=== PATIENT | female | born 1980 | race American Indian/Alaskan Native ===

== ENCOUNTER 2016-12-30 20:18 | Emergency (ER) | payer SELFPAY ==
[2016-12-30 21:57] LABS: Anion Gap 19 mmol/L; BUN/Creatinine Ratio 13.75; Blood Urea Nitrogen 11 mg/dL (7-17); Carbon Dioxide 25 mmol/L (22-30); Chloride 99.1 mmol/L (98-107); Glucose 92 mg/dL (65-100); Potassium 3.7 mmol/L (3.6-5.0); Sodium 139 mmol/L (137-145)
[2016-12-30 22:03] LABS: Hematocrit 39.1 % (30.3-42.9); Hemoglobin 12.7 gm/dl (10.1-14.3); Mean Corpuscular HGB Conc 33 % (30-34); Mean Corpuscular Hemoglobin 29 pg (28-32); Mean Corpuscular Volume 90 fl (79-97); Platelet Count 255 K/mm3 (140-440); Red Blood Count 4.33 M/mm3 (3.65-5.03); Red Cell Distribution Width 15.3 % (13.2-15.2); White Blood Count 7.2 K/mm3 (4.5-11.0)
[2016-12-30 23:01] LABS: Mucus,Urine 3+ /HPF
[2016-12-30 23:06] LABS: Bilirubin,Urine NEG (Negative); Blood,Urine MOD (Negative); Ketones,Urine TR mg/dL (Negative); Leukocyte Esterase,Urine LG (Negative); Nitrite,Urine NEG (Negative); Urobilinogen,Urine < 2.0 mg/dL (<2.0)
--- NOTE | 2016-12-31 06:18 | Emergency Department Report ---
ED General Adult HPI - General Chief complaint: Urogenital-Female Stated complaint: STOMACH/BACK PAIN,DISCHARGE Time Seen by Provider: 12/31/16 06:15 Source: patient Mode of arrival: Ambulatory Limitations: No Limitations - History of Present Illness Initial comments: Patient describes some vague lower abdominal pain. She states that she has not had any difficulty urinating "yet". She states that she has seen the MUSIC RESEARCHER doctor associated with [facility]. She states that a hysterectomy is being contemplated for chronic pain. She reports no fever chills vomiting or change in bowel movements. At this time she is not complaining of anything and appears quite comfortable. -: month(s) Location: abdomen Radiation: non-radiation Quality: aching Consistency: intermittent, now resolved Improves with: none Worsens with: none Associated Symptoms: denies other symptoms Treatments Prior to Arrival: none - Related Data Previous Rx's Medication Instructions Recorded Last Taken Type HYDROcodone/APAP 5-325 [[place] 1 each PO Q6HR PRN #10 tablet 12/31/16 Unknown Rx 5/325] Nitrofurantoin Monroe/M-Cryst 100 mg PO Q12HR #14 capsule 12/31/16 Unknown Rx [Macrobid CAP] Allergies Allergy/AdvReac Type Severity Reaction Status Date / Time No Known Allergies Allergy Unverified 12/30/16 20:48 ED Review of Systems ROS: Stated complaint: STOMACH/BACK PAIN,DISCHARGE Other details as noted in HPI Constitutional: denies: chills, fever Eyes: denies: eye pain, eye discharge, vision change ENT: denies: ear pain, throat pain Respiratory: denies: cough, shortness of breath, wheezing Cardiovascular: denies: chest pain, palpitations Endocrine: no symptoms reported Gastrointestinal: as per HPI, abdominal pain. denies: nausea, vomiting, diarrhea, constipation, hematemesis, melena, hematochezia Genitourinary: denies: urgency, dysuria, discharge Musculoskeletal: denies: back pain, joint swelling, arthralgia Skin: denies: rash, lesions Neurological: denies: headache, weakness, paresthesias Psychiatric: denies: anxiety, depression Hematological/Lymphatic: denies: easy bleeding, easy bruising ED Past Medical Hx - Past Medical History Additional medical history: fibroids,ovarian cyst - Surgical History Past Surgical History?: No - Social History Smoking Status: Never Smoker Substance Use Type: None - Medications Home Medications: Home Medications Medication Instructions Recorded Confirmed Last Taken Type HYDROcodone/APAP 5-325 [[place] 1 each PO Q6HR PRN #10 tablet 12/31/16 Unknown Rx 5/325] Nitrofurantoin Monroe/M-Cryst 100 mg PO Q12HR #14 capsule 12/31/16 Unknown Rx [Macrobid CAP] ED Physical Exam - General Limitations: No Limitations General appearance: alert, in no apparent distress - Head Head exam: Present: atraumatic, normocephalic - Eye Eye exam: Present: normal appearance. Absent: scleral icterus - ENT ENT exam: Present: mucous membranes moist - Neck Neck exam: Present: normal inspection - Respiratory Respiratory exam: Present: normal lung sounds bilaterally. Absent: respiratory distress - Cardiovascular Cardiovascular Exam: Present: regular rate, normal rhythm. Absent: systolic murmur, diastolic murmur, rubs, gallop - GI/Abdominal GI/Abdominal exam: Present: soft, normal bowel sounds. Absent: distended, tenderness, guarding, rebound, rigid, organomegaly, mass, bruit, pulsatile mass , hernia - Extremities Exam Extremities exam: Present: normal inspection - Back Exam Back exam: Present: normal inspection. Absent: CVA tenderness (R), CVA tenderness (L) - Neurological Exam Neurological exam: Present: alert, oriented X3, CN II-XII intact. Absent: motor sensory deficit - Psychiatric Psychiatric exam: Present: normal affect, normal mood - Skin Skin exam: Present: warm, dry, intact, normal color. Absent: rash ED Course Vital Signs 12/30/16 12/30/16 20:40 20:43 Temperature 99.2 F 99.2 F Pulse Rate 70 70 Respiratory 18 18 Rate Blood Pressure 116/79 Blood Pressure 116/79 [Right] O2 Sat by Pulse 100 100 Oximetry - Reevaluation(s) Reevaluation #1: Patient is appropriate for follow-up with her c.o.d. clerk. She will be given Rocephin here. She is currently not complaining of discharge or pain. 12/31/16 06:59 ED Medical Decision Making - Lab Data Result diagrams: 12/30/16 21:26 12/30/16 21:26 Laboratory Results - last 24 hr 12/30/16 12/30/16 12/30/16 21:26 21:26 22:13 WBC 7.2 RBC 4.33 Hgb 12.7 Hct 39.1 MCV 90 MCH 29 MCHC 33 RDW 15.3 H Plt Count 255 Sodium 139 Potassium 3.7 Chloride 99.1 Carbon Dioxide 25 Anion Gap 19 BUN 11 Creatinine 0.8 Estimated GFR > 60 BUN/Creatinine Ratio 13.75 Glucose 92 Calcium 9.0 Urine Color Yellow Urine Turbidity Slightly-cloudy Urine pH 5.0 Ur Specific Kinsley 1.028 Urine Protein 30 mg/dl Urine Glucose (UA) Neg Urine Ketones Tr Urine Blood Mod Urine Nitrite Neg Ur Reducing Substances Not Reportable Urine Bilirubin Neg Urine Ictotest Not Reportable Urine Urobilinogen < 2.0 Ur Leukocyte Esterase Lg Urine WBC (Auto) 56.0 H Urine RBC (Auto) 13.0 U Epithel Cells (Auto) 4.0 Urine Mucus 3+ Urine HCG, Qual Negative Critical care attestation.: If time is entered above; I have spent that time in minutes in the direct care of this critically ill patient, excluding procedure time. ED Disposition Clinical Impression: Acute cystitis Qualifiers: Hematuria presence: without hematuria Qualified Code(s): N30.00 - Acute cystitis without hematuria Uterine fibroid Qualifiers: Uterine leiomyoma location: unspecified location Qualified Code(s): D25.9 - Leiomyoma of uterus, unspecified Disposition: DISCHARGED TO HOME OR SELFCARE Is pt being admited?: No Does the pt Need Aspirin: No Condition: Stable Instructions: Urinary Tract Infection in Women (ED), Uterine Fibroids (ED) Additional Instructions: Return any acute change or problem. Follow-up with your MUSIC RESEARCHER doctor. A urine culture should be checked in the next 2-3 days. Rx as directed. Prescriptions: HYDROcodone/APAP 5-325 [[place] 5/325] 1 each PO Q6HR PRN #10 tablet PRN Reason: Pain Nitrofurantoin Monroe/M-Cryst [Macrobid CAP] 100 mg PO Q12HR #14 capsule Referrals: PRIMARY CARE, [Primary Care Provider] - 3-5 Days [facility] [Provider Group] - 2-3 Days Time of Disposition: 07:01
[2016-12-31] MEDS ORDERED: XYLOCAINE 1% MPF 5 mL INFILTRATI ONE (07:02)
[2016-12-31] MEDS ORDERED: ROCEPHIN IM ONE (07:02)
[2016-12-31] MEDS ORDERED: ZITHROMAX PO ONE (07:02)
[2016-12-31 08:19] VITALS: BP 115/83
== END 2016-12-31 08:18 | disposition home or self-care (01) ==
LOC: ED 20:18
DX: N30.00 Acute cystitis without hematuria (principal); D25.9 Leiomyoma of uterus, unspecified
CPT/HCPCS: 36415; 80048; 81001; 81025; 85027; 96372; 99283; J0696

== ENCOUNTER 2017-05-09 10:27 | Inpatient (IN) | payer OTHER ==
--- NOTE | 2017-05-08 09:55 | Anesthesia Consultation ---
Anesthesia Consult and Med Hx Date of service: 05/08/17 - Airway Anesthetic Teeth Evaluation: Good ROM Head & Neck: Adequate Mental/Hyoid Distance: Adequate Mallampati Class: Class II Intubation Access Assessment: Probably Good - Pulmonary Exam CTA: Yes - Cardiac Exam Cardiac Exam: RRR - Pre-Operative Health Status ASA Pre-Surgery Classification: ASA2 Proposed Anesthetic Plan: General - Pulmonary Hx Smoking: No - Cardiovascular System Hx Hypertension: No - Central Nervous System Hx Psychiatric Problems: No - Hematic Hx Anemia: Yes (bleeding from fibroids) - Other Systems Hx Cancer: No
[2017-05-08 10:16] LABS: Hematocrit 34.7 % (30.3-42.9); Hemoglobin 11.4 gm/dl (10.1-14.3); Mean Corpuscular HGB Conc 33 % (30-34); Mean Corpuscular Hemoglobin 30 pg (28-32); Mean Corpuscular Volume 90 fl (79-97); Platelet Count 235 K/mm3 (140-440); Red Blood Count 3.87 M/mm3 (3.65-5.03); Red Cell Distribution Width 15.4 % (13.2-15.2); White Blood Count 3.6 K/mm3 (4.5-11.0)
[2017-05-08 11:06] LABS: Anisocytosis 1+; Blastocytes % (Manual) 0 %
[2017-05-08 11:07] LABS: Diff Status Complete; Hypochromasia 1+; Large Platelets Few; Platelet Estimate Cons
--- NOTE | 2017-05-09 09:21 | Short Stay Summary ---
Short Stay Documentation Date of service: 05/09/17 Narrative H&P: C/O:Chronic Pelvic pain HGSIL on PAP 36-year-old presents for surgery. She has had pelvic pain 5 years was previously seen by an FUR CUTTING MACHINE OPERATOR who recommended a hysterectomy but she declined due to social reasons. She also had HGSIL on Pap obtained this year. She is status post transvaginal ultrasound on 02/2017 which shows an ~ 11 cm uterus with a ~ 6 cm fibroid which appeared necrotic. Right ovary is large and septated. Left ovary is normal. Myometrium is diffuse consistent with adenomyosis possible endometrial polyp. An ultrasound 6 weeks later showed resolution of her ovarian cyst. She is status post negative EMB Status post HGSIL on Pap Gynhx: Regular and heavy, lasts 7 days, plus severe dysmenorrhea causing her to miss work Medhx:None Sughx:BTL, s/p Laparoscopic csytectomy OBHX: # 3 (last 6 yrs ago) Meds:Depo All:NKDA Fshx:Single, no smoking Colon cancer ---> Mother at ~ 55 yrs On exam, she has no obvious pathology A: Chronic Pelvic pain Severe Dysplasia Fibroid uterus P: -Patient and I discussed that her surgery would be an LAVH. We reviewed risks of surgery including injury to surrounding organs and structures. Especially reviewed risks of injury to the urinary system especially the ureters. All questions were answered -She will sign consent and we will proceed to surgery once otherwise available - History Past Medical History: No medical history Past Surgical History: Other (Laparoscopic tubal ligation, laparoscopic cystectomy) Social history: single, no smoking, no IV drug use, no full code - Allergies and Medications Current Medications: Allergies No Known Allergies Allergy (Unverified 05/02/17 16:44) Home Medications Medication Instructions Recorded Confirmed Last Taken Type No Known Home Medications [No 05/02/17 05/02/17 Unknown History Reported Home Medications] Active Medications Famotidine (Pepcid) 20 mg PO PREOP NR Stop: 05/09/17 21:00 Sodium Chloride (Nacl 0.9% 1000 Ml) 1,000 mls @ 100 mls/hr IV DIRECT KWASI Midazolam HCl (Versed) 2 mg IV PREOP NR Stop: 05/09/17 21:00 - Physical exam General appearance: no acute distress, well-nourished Lungs: Clear to auscultation, Normal air movement Breasts: deferred Heart: Regular rate, Normal S1, Normal S2 Gastrointestinal: normal, normoactive bowel sounds, no tenderness, no distended , no masses, no guarding Female Genitourinary: normal Extremities: no ischemia - Brief post op/procedure progress note Date of procedure: 05/09/17 Pre-op diagnosis: chronic pelvic pain, fibroid uterus, HGSIL on Pap smear Post-op diagnosis: other (as above plus significant adhesions) Procedure: Postoperative assisted vaginal hysterectomy converted to total abdominal hysterectomy, left salpingectomy, adhesiolysis Anesthesia: GETA Findings: Significant adhesion of the uterus to the bowel, omental adhesions to the anterior abdominal wall, adhesion of the uterus to the left pelvic sidewall, absent right adnexa, fibroid uterus Intraoperative consult by Dr. Carreno of Gen. surgery Surgeon: ELLEN DE LOS SANTOS Nutrition Intern: GRETA TAVARES Estimated blood loss: other (400 mL) Pathology: list (uterus, cervix, left tube) Specimen disposition: to lab Condition: stable Short Stay Discharge Plan Follow up with: PRIMARY CARE, [Primary Care Provider] - 7 Days Prescriptions: Ibuprofen [Motrin 600 MG tab] 600 mg PO Q8H PRN #30 tablet PRN Reason: Pain Multivitamin with Iron [Multivitamins with Iron] 1 each PO DAILY #30 tablet oxyCODONE /ACETAMINOPHEN [Percocet 5/325] 1 tab PO Q6HR PRN #30 tablet PRN Reason: Pain
[~2017-05-09 10:27] MED LIST: ANCEF/STERILE WATER 2 GM/20 ML 2 GM/20 ML SYRINGE IV NR; NACL 0.9% 1000 ML 1,000 ML IV SCH; PEPCID PO NR; VERSED IV NR
[2017-05-09] MEDS ORDERED: SUBLIMAZE ONE (10:40)
[2017-05-09] MEDS ORDERED: ZEMURON IV ONE (10:40)
[2017-05-09] MEDS ORDERED: XYLOCAINE MPF 2% ONE (10:40)
[2017-05-09] MEDS ORDERED: DIPRIVAN 10 MG/ML IV ONE (10:41)
[2017-05-09] MEDS ORDERED: DILAUDID ONE (11:54)
[2017-05-09] MEDS ORDERED: NACL BACTERIOSTATIC INFILTRATI ONE (12:35)
[2017-05-09] MEDS ORDERED: MARCAINE 0.25% INFILTRATI ONE ×2 (12:56→15:46)
[2017-05-09] MEDS ORDERED: THROMBIN (BOVINE) TP ONE ×4 (12:58→16:06)
[2017-05-09] MEDS ORDERED: GELFOAM POWDER 1GM MM ONE ×4 (12:58→16:06)
[2017-05-09 13:22] LABS: BUN/Creatinine Ratio 23.33; Blood Urea Nitrogen 14 mg/dL (7-17); Calcium 8.8 mg/dL (8.4-10.2); Carbon Dioxide 23 mmol/L (22-30); Chloride 102.6 mmol/L (98-107); Glucose 79 mg/dL (65-100); Sodium 140 mmol/L (137-145)
[2017-05-09] MEDS ORDERED: DECADRON ONE (14:12)
[2017-05-09 14:40] LABS: Anion Gap 20 mmol/L; Potassium 5.4 mmol/L (3.6-5.0)
[2017-05-09] MEDS ORDERED: NACL 0.9% IR ONE (15:45)
[2017-05-09] MEDS ORDERED: ROBINUL ONE (16:10)
[2017-05-09] MEDS ORDERED: BLOXIVERZ ONE (16:10)
[2017-05-09] MEDS ORDERED: ZOFRAN ONE (16:10)
[2017-05-09] MEDS ORDERED: NACL 0.9% 1000 ML 2,000 ML ONE (16:13)
--- NOTE | 2017-05-09 16:48 | Operative Report ---
Operative Report Operative Report: DATE: 05/09/2017 PREOPERATIVE DIAGNOSIS: 36-year-old with chronic pelvic pain, fibroid uterus, HGSIL on recent Pap POSTOP DIAGNOSIS: As above plus bowel with significant adhesions of bowel to the uterus, uterus to sidewall, thickened bowel, significant omental adhesions to the anterior abdominal wall NAME OF PROCEDURE: LAVH converted to Total abdominal hysterectomy with Left salpingectomy, Adhesiolysis, exploratory laparotomy SURGEON: ELLEN DE LOS SANTOS MD INTRA OP CONSULT: Dr. Duran of Gen. airline counter agent: LISA TAVARES ANESTHESIA: Gen. EBL: 400 mL PATHOLOGY SPECIMEN: Uterus cervix and tubes URINE OUTPUT: 200 mL FINDINGS: Significant omental adhesions to the anterior abdominal wall, bowel adhered to the left side of the uterus, uterus adhesed to the pelvic sidewall. Intra-Op consult with Dr.'s Duran of Gen. Surgery who noticed thickening of the bowel suspicious forr tumor, mass or adhesion. Enlarged fibroid uterus and normal-appearing cervix DESCRIPTION OF PROCEDURE: After informed consent, patient was taken to the operating room where she was prepped and draped in a sterile fashion. She was placed in dorsolithotomy position then a galeana catheter was placed without difficulty . Alxe speculum speculum was placed in the patient's vagina and single-tooth was used to grab the anterior lip. A [employer]are uterine manipulator was advanced into the patient's cervical os without difficulty and the balloon was inflated. Attention was then turned to the patient's abdomen where 1/4 percent Marcaine was injected then a 1-1/2 cm incision was made in the umbilical fold; using S retractors, the subcutaneous tissue was dissected down to exposed the fascia. Fascia was grasped with Mehdi forceps, elevated and an incision was made in the midline using Metzenbaum scissors. Fascial incision was extended with use of Joycelyn forceps and then S retractors were placed in the incisional hole. Peritoneal layer was seen and grasped with Tomasz 2; this was elevated and incision was made in the midline using Metzenbaum scissors. S retractors were placed in the incisional hole in the peritoneum and then a Sierra trocar was advanced into the patient's abdomen without difficulty. CO2 gas was used to obtain intra-abdominal insufflation. Significant adhesion of the bowel to the uterus and uterus to the sidewall were noticed. Decision was made to convert to open procedure. A vertical skin incision was performed 2 cm above the pubic symphysis. This was then carried down to the underlying rectus fascia which was scored in the midline. The fascial incision was extended vertically with the use of Nye scissors. The rectus was in the midline and the peritoneal cavity was entered without difficulty. Above mentioned findings were noted. The O' Angel-O'Almaraz retractor was placed in the patient's pelvic cavity and bowel was packed away with lap sponges. The uterus grasped with a single-tooth tenaculum and elevated. Gentle adhesiolysis was then started. We initially removed all omental adhesions to anterior abdominal wall obstructing our field of vision. We then proceeded in freeing the bowel from the uterus and then freeing the uterus from the pelvic sidewall. Using handheld LigaSure, the round ligament and utero-ovarian's on Left side of the uterus was serially grasped cauterized and transected, no round or fallopian tube was noted on the right. Adhesions then the the uterine arteries on both sides were then grasped cauterized and transected. Using Fly scissors, the fundus of the uterus was amputated from the cervical stump and removed from the surgical field. Using straight Heaneys, the cardinal ligaments and then the uterosacrals were serially grasped transected and suture ligated. Using curved Heaneys, the vaginal cuff was grasped below the cervix and then using curved Fly scissors the cervix was amputated and removed from the cervix surgical field. Interrupted [id number] stitches were used to close the vaginal cuff. Hemostasis was confirmed. Dr. Duran was then called in for Intra-Op consult. Please see his note The peritoneal edges were then grasped with hemostats and Joycelyn's. Irrigation was used to clear the gutters of all clots and debris. Thrombin hemostatic agent was applied copiously over the vaginal cuff and incisions and Interceed placed in the cavity to prevent future adhesions. The peritoneal layer and fascia were closed in a mass closure technique with 0-PDS on a loop. All other laparoscopic ports were closed with 0 Vicryl on a [address]1. The subcutaneous layer was reapproximated with a single zphnty-[id number] stitch. The skin was then closed in a subcuticular manner with 4-0 Monocryl. She tolerated the procedure well lap and instrument counts were correct 2, she did receive 2 grams of Ancef prior to the procedure. She is transferred to PACU in stable condition.
[2017-05-09] MEDS ORDERED: ZOFRAN IV PRN (17:02)
[2017-05-09] MEDS ORDERED: TYLENOL PO PRN (17:02)
[2017-05-09] MEDS: DILAUDID IV PRN ×2 (17:32→17:42)
--- NOTE | 2017-05-09 17:46 | Anesthesia Day of Surgery ---
Anesthesia Day of Surgery - Day of Surgery Patient Examined: Yes Patient H&P Reviewed: Yes Patient is NPO: Yes
--- NOTE | 2017-05-09 17:46 | Post Anesthesia Evaluation ---
- Post Anesthesia Evaluation Patient Participated: Yes Airway Patent: Yes Stable Respiratory Function: Yes Temp > 96.8F: Yes Pain Manageable: Yes Adequeate Hydration: Yes Anesthesia Complications: No Block Receding Appropriately: Yes
[2017-05-09] MEDS ORDERED: D5LR 1,000 ML IV SCH (18:00)
[2017-05-09] MEDS ORDERED: NARCAN 0.4 MG/1 ML IV PRN (18:55)
[2017-05-09] MEDS ORDERED: MORPHINE PCA 30MG/30ML IV SCH (19:00)
[2017-05-09] MEDS: COLACE PO SCH (22:43)
[2017-05-10 04:44] LABS: Hematocrit 32.9 % (30.3-42.9); Hemoglobin 10.5 gm/dl (10.1-14.3)
[2017-05-10 05:03] LABS: Anion Gap 19 mmol/L; Blood Urea Nitrogen 12 mg/dL (7-17); Calcium 7.7 mg/dL (8.4-10.2); Carbon Dioxide 20 mmol/L (22-30); Glucose 136 mg/dL (65-100); Potassium 4.6 mmol/L (3.6-5.0); Sodium 138 mmol/L (137-145)
--- NOTE | 2017-05-10 06:39 | Event Note ---
Date: 05/09/17 Late entry: Patient seen last night at about 10 PM. Some pain issues otherwise stable. Discussed surgery with the patient, discussed severe adhesions noted. Patient now belatedly mentions a possible laparotomy performed for unknown indication. Informed patient that we had to call in general surgery to examine the bowel after we performed adhesiolysis. Dr. Duran is the surgeon, he recommends she have a sigmoidoscopy in 2-4 weeks due to ?mass ?thickenning he palpated while examining the bowel. Dr. Duran plans to document his recommendations.
--- NOTE | 2017-05-10 07:53 | Progress Note ---
Assessment and Plan - Patient Problems (1) S/P TRISTAN (total abdominal hysterectomy) Onset Date: 05/10/17 Current Visit: Yes Status: Resolved Plan to address problem: A: S/P TRISTAN - POD #1 Doing well P: Continue RPOC Anticipate discharge in 24-48hrs Subjective - Subjective Date of service: 05/10/17 Principal diagnosis: s/p LAVH converted to TRISTAN - POD #1 Interval history: Pt is feeling well without complaints. Tolerating a liquid diet without nausea or vomiting. Patient reports: appetite normal, voiding normally, pain well controlled, no flatus, no ambulating normally Objective - Vital Signs Latest vital signs: Vital Signs Temp Pulse Pulse Resp BP BP Pulse Ox 05/10/17 06:30 99.4 F 95 H 16 136/76 05/10/17 06:06 84 05/10/17 05:53 18 05/10/17 04:24 18 05/10/17 01:56 18 05/10/17 01:15 98.5 F 84 16 125/83 05/09/17 21:00 98.4 F 76 18 133/85 05/09/17 18:30 97.6 F 78 16 146/84 05/09/17 18:15 67 18 138/86 100 05/09/17 18:02 97.4 F L 68 18 146/86 100 05/09/17 17:45 62 18 141/81 100 05/09/17 17:42 20 05/09/17 17:40 61 20 114/80 100 05/09/17 17:32 16 05/09/17 17:30 66 20 130/84 100 05/09/17 17:20 70 20 127/78 100 05/09/17 17:15 73 20 130/78 100 05/09/17 17:10 71 20 123/76 100 05/09/17 17:05 71 20 127/75 100 05/09/17 17:02 97.5 F L 79 11 L 123/76 100 05/09/17 12:00 98.4 F 50 L 18 128/78 100 Intake and Output 05/09/17 05/10/17 05/10/17 22:59 06:59 14:59 Intake Total 600 360 Output Total 300 1100 500 Balance 300 -740 -500 Intake: IV 600 Intake, Free Water 360 Output: Urine 300 1100 500 Indwelling Catheter 1100 500 Other: Total, Output Amount 1100 500 Voiding Method Indwelling Catheter Indwelling Catheter - Exam Breasts: Present: deferred Cardiovascular: Present: Regular rate Lungs: Present: Clear to auscultation Abdomen: Present: normal appearance, soft Extremities: Present: normal Incision: Present: normal, dry, intact, dressed - Labs Labs: Abnormal lab results 05/09/17 05/10/17 Range/Units 12:35 03:48 Potassium 5.4 H (3.6-5.0) mmol/L Carbon Dioxide 20 L (22-30) mmol/L Creatinine 0.6 L (0.7-1.2) mg/dL Glucose 136 H (65-100) mg/dL Calcium 7.7 L (8.4-10.2) mg/dL Laboratory Tests 05/08/17 05/08/17 05/08/17 09:40 09:40 09:40 WBC 3.6 L RBC 3.87 Hgb 11.4 Hct 34.7 MCV 90 MCH 30 MCHC 33 RDW 15.4 H Plt Count 235 Add Manual Diff Complete Total Counted 100 Seg Neuts % (Manual) 37.0 L Band Neutrophils % 0 Lymphocytes % (Manual) 48.0 H Reactive Lymphs % (Man) 1.0 Monocytes % (Manual) 10.0 H Eosinophils % (Manual) 3.0 Basophils % (Manual) 1.0 Metamyelocytes % 0 Myelocytes % 0 Promyelocytes % 0 Blast Cells % 0 Nucleated RBC % Not Reportable Seg Neutrophils # Man 1.3 L Band Neutrophils # 0.0 Lymphocytes # (Manual) 1.7 Abs React Lymphs (Man) 0.0 Monocytes # (Manual) 0.4 Eosinophils # (Manual) 0.1 Basophils # (Manual) 0.0 Metamyelocytes # 0.0 Myelocytes # 0.0 Promyelocytes # 0.0 Blast Cells # 0.0 WBC Morphology Not Reportable Hypersegmented Neuts Not Reportable Hyposegmented Neuts Not Reportable Hypogranular Neuts Not Reportable Smudge Cells Not Reportable Toxic Granulation Not Reportable Toxic Vacuolation Not Reportable Dohle Bodies Not Reportable Pelger-Huet Anomaly Not Reportable Alma Rosa Rods Not Reportable Platelet Estimate Cons Clumped Platelets Not Reportable Plt Clumps, EDTA Not Reportable Large Platelets Few Giant Platelets Not Reportable Platelet Satelliting Not Reportable Plt Morphology Comment Not Reportable RBC Morphology Not Reportable Dimorphic RBCs Not Reportable Polychromasia Not Reportable Hypochromasia 1+ Poikilocytosis Not Reportable Anisocytosis 1+ Microcytosis Not Reportable Macrocytosis Not Reportable Spherocytes Not Reportable Pappenheimer Bodies Not Reportable Sickle Cells Not Reportable Target Cells Not Reportable Tear Drop Cells Not Reportable Ovalocytes Not Reportable Helmet Cells Not Reportable [place] Bodies Not Reportable [place] Rings Not Reportable [place] Cells Not Reportable Bite Cells Not Reportable Crenated Cell Not Reportable Elliptocytes Not Reportable Acanthocytes (Spur) Not Reportable Rouleaux Not Reportable Hemoglobin C Crystals Not Reportable Schistocytes Not Reportable Malaria parasites Not Reportable Christopher Bodies Not Reportable Hem Pathologist Commnt No Sodium Potassium Chloride Carbon Dioxide Anion Gap BUN Creatinine Estimated GFR BUN/Creatinine Ratio Glucose Calcium HCG, Qual Negative Blood Type O POSITIVE Antibody Screen TNR JJ Antibody Screen Negative 05/09/17 05/10/17 05/10/17 12:35 03:48 03:48 WBC RBC Hgb 10.5 Hct 32.9 MCV MCH MCHC RDW Plt Count Add Manual Diff Total Counted Seg Neuts % (Manual) Band Neutrophils % Lymphocytes % (Manual) Reactive Lymphs % (Man) Monocytes % (Manual) Eosinophils % (Manual) Basophils % (Manual) Metamyelocytes % Myelocytes % Promyelocytes % Blast Cells % Nucleated RBC % Seg Neutrophils # Man Band Neutrophils # Lymphocytes # (Manual) Abs React Lymphs (Man) Monocytes # (Manual) Eosinophils # (Manual) Basophils # (Manual) Metamyelocytes # Myelocytes # Promyelocytes # Blast Cells # WBC Morphology Hypersegmented Neuts Hyposegmented Neuts Hypogranular Neuts Smudge Cells Toxic Granulation Toxic Vacuolation Dohle Bodies Pelger-Huet Anomaly Alma Rosa Rods Platelet Estimate Clumped Platelets Plt Clumps, EDTA Large Platelets Giant Platelets Platelet Satelliting Plt Morphology Comment RBC Morphology Dimorphic RBCs Polychromasia Hypochromasia Poikilocytosis Anisocytosis Microcytosis Macrocytosis Spherocytes Pappenheimer Bodies Sickle Cells Target Cells Tear Drop Cells Ovalocytes Helmet Cells [place] Bodies [place] Rings [place] Cells Bite Cells Crenated Cell Elliptocytes Acanthocytes (Spur) Rouleaux Hemoglobin C Crystals Schistocytes Malaria parasites Christopher Bodies Hem Pathologist Commnt Sodium 140 138 Potassium 5.4 H 4.6 Chloride 102.6 104.0 Carbon Dioxide 23 20 L Anion Gap 20 19 BUN 14 12 Creatinine 0.6 L 1.0 D Estimated GFR > 60 > 60 BUN/Creatinine Ratio 23.33 12.00 Glucose 79 136 H Calcium 8.8 7.7 L HCG, Qual Blood Type Antibody Screen JJ Antibody Screen
[2017-05-10] MEDS: PERCOCET 5/325 PO PRN ×2 (08:40→14:10)
--- NOTE | 2017-05-10 09:05 | Admit Criteria Form ---
Admission Criteria Documentation: AMBULATORY SURGERY EXCEPTION CRITERIA Ambulatory Surgery Exception Criteria ( Place 'X' for any and all applicable criteria): Surgery or procedure performed on ambulatory basis may require inpatient stay for[A] ANY ONE of the following(1)(2)(3)(4)(5)(6)(7)(8)(9): [X] I. A preoperative situation, condition, or finding that warrants inpatient stay as indicated by ANY ONE of the following: [X] a) Inpatient care needed because of severity of a disease or condition rather than the surgery (eg, severe cardiac or respiratory disease, severe infection) (15) (16 ) (17) (18) [] b) Emergent procedure (eg, angioplasty for acute ischemia)(19) [] c) Complex surgical approach or situation as indicated by ANY ONE of the following(3): [] i) Open approach needed instead of usual endoscopic, transcatheter, or other less invasive procedure [] ii) Difficult approach because of previous operation [] iii) Airway monitoring required after open neck procedures(20)(21) [] iv) Large mass requiring unusually extensive dissection [] v) Additional complicating feature requiring inpatient care (eg, drain management)(22(23): [] d) Major surgery in a pt with high anesthetic risk as indicated by ANY ONE of the following (2)(3)(5)(7)(8): [] i) ASA risk class III or higher (severe systemic disease impairing function) [D] [] ii) Advanced age (eg, older than 85 years)(14)(24) [] iii) Symptomatic heart failure(25) [] iv) Symptomatic asthma or COPD(8)(21) [] v) Morbid obesity with hemodynamic or respiratory problems(20)( 21)(26)(27) [] vi) Obstructive sleep apnea(20)(21) [] vii) Former premature infants who are younger than 60 weeks [] viii) High risk for severe postoperative abnormalities (eg, severe postoperative hypocalcemia after parathyroidectomy for severe hyperparathyroidism)(27)( 28) [] ix) Unstable angina(25) [] e) Drug-related risk requiring inpatient stay as indicated by ANY ONE of the following(5)(10)(14)(32)(33) [] i) Procedure requires discontinuing drugs or other therapy (eg , antiarrhythmic medication, antiseizure medication), which necessitates inpatient observation or treatment.(18)(31) [] ii) Major surgery and high risk drug use as indicated by ANY ONE of the following: [] 1) Active abuse of cocaine or similar drug [] 2) Monoamine oxidase inhibitor use [] 3) Other drug identified as posing risk [] f) Inadequate outpatient care situation as indicated by ANY ONE of the following(5)(10)(14)(32)(33) [] i) Patient lives remote from medical facility and procedure has urgent complication potential, and temporary nearby residence cannot be arranged [] ii) Patient will have postprocedure incapacitation and inadequate assistance at home, or alternative level of care cannot be arranged. [] iii) Patient will have long general anesthesia or procedure side effect resolution time, and competent person to stay with patient on first postoperative night at home or alternative level of care cannot be arranged. []iv) Other inadequate outpatient situation that cannot be handled by other means [] II. A perioperative event, condition, or finding that warrants inpatient stay as indicated by ANY ONE of the following (1)(2)(3): [] a) Inadequate physiologic recovery: cardiovascular, respiratory, or hemodynamic status not normal or near preoperative baseline(18) [] b) Hemodynamic instability [] c) Patient not alert with near normal or baseline mental status [] d) Temperature not normal or as expected and not appropriate for outpatient treatment of condition [] e) Ambulatory or appropriate activity level status not yet achieved post procedure [E](34)(35)(36) [] f) Operative site not appropriate (eg, unexpected or excessive drainage or bleeding) [] g) Postoperative effects not resolved or adequately managed (eg, significant pain or vomiting not appropriate for outpatient or next level of care)(10)(12) [] h) Complicating features requiring inpatient care as indicated by ANY ONE of the following(37): [] i) Severe complications of procedure (eg, bowel injury, airway compromise, vascular injury,severe hemorrhage) [] ii) Extensive (eg, dissection far beyond usual scope of procedure ) or prolonged (eg, 120 minutes beyond usual) surgery needed requiring inpatient postoperative care [] iii) Conversion to an open or complex procedure that requires inpatient care (eg, open vs laparoscopic cholecystectomy, abdominal vs vaginal hysterectomy)(38) [] iv) Comorbid condition or test result identified during or post procedure that requires inpatient care (7) [] v) Malignant hyperthermia(30) [] vi) Other complicating feature requiring inpatient care(22)(23) Inpatient stay may be needed until ALL of the following are present (1)(2)(3)(4) (5)(6)(10)(14)(33)(40): []a) Physiologic recovery: cardiovascular, respiratory, and hemodynamic status normal or near preoperative baseline []b) Hemodynamic stability []c) Patient alert, with near normal or baseline mental status []d) Temperature appropriate: patient afebrile or temperature appropriate for outpt treatment of condition []e) Activity level appropriate: ambulatory or appropriate activity level post procedure []f) Operative site appropriate as indicated by ALL of the following: []i) Site dry or with expected drainage []ii) Any blood noted is as expected for procedure. []g) Postoperative effects resolved or managed as indicated by ALL of the following: []i) Pain management appropriate for outpatient (or next level of) care(10) []ii) Minimal nausea and vomiting: if present, successfully treated with oral medication(12) []iii) Headache, dizziness, or drowsiness (if present) are mild. []h) Voiding status acceptable as indicated by ANY ONE of the following: []i) Voiding spontaneously []ii) No voiding but instructions given for follow-up in 6 to 8 hours []iii) Urinary catheter in place, and instructions given for follow-up []i) Complicating features requiring inpatient care manageable at a lower level of care(37) []j) Comorbid conditions manageable at a lower level of care(37) The original [employer] content created by [employer] has been revised. The portions of the content which have been revised are identified through the use of italic text or in bold, and [employer] has neither reviewed nor approved the modified material. All other unmodified content is copyright [employer]. Please see references footnoted in the original [employer] edition 2016 Admission Criteria Met: Yes
[2017-05-10] MEDS: COLACE PO SCH ×2 (11:10→21:51)
[2017-05-10] MEDS: TORADOL IV SCH ×2 (11:46→18:06)
--- NOTE | 2017-05-10 13:12 | Consultation ---
INTRAOPERATIVE CONSULTATION REASON FOR CONSULTATION: I was asked by Dr. Khan to see this patient, apparently he was doing a total abdominal hysterectomy on her, and he was concerned about any perforation in the rectosigmoid area during the operation. The patient when I walked in was asleep already and the uterus is out, I could not see anything specific. The vault of the vagina is being handled by sutures and there is a thickened mass that is about 1 X 2 cm between the lower sigmoid and loop of the intestines, I was concerned about this. There is no evidence of any perforation. This is the concern of Dr. Khan. We did insufflate air in the inner canal under water and no evidence for any leaks and we could see that the sigmoid becoming dilated with the insufflation. I am satisfied, we elected not to do anything at the present time, and we will just continue closing the abdomen. I did indicate to Dr. Khan that this patient may need a lower endoscopy to find the nature of the thickening in her lower sigmoid. He agrees and he is going to tell the patient. JOB# [id number] QUITA/CARMEN HAUSER
[2017-05-10] MEDS: MILK OF MAGNESIA PO PRN (16:49)
[2017-05-11] MEDS: TORADOL IV SCH ×4 (00:09→19:03)
[2017-05-11 06:43] LABS: Anion Gap 16 mmol/L; BUN/Creatinine Ratio 9.16; Blood Urea Nitrogen 11 mg/dL (7-17); Calcium 7.7 mg/dL (8.4-10.2); Carbon Dioxide 24 mmol/L (22-30); Chloride 104.3 mmol/L (98-107); Glucose 107 mg/dL (65-100); Potassium 3.9 mmol/L (3.6-5.0); Sodium 140 mmol/L (137-145)
[2017-05-11] MEDS: PERCOCET 5/325 PO PRN ×2 (10:04→19:02)
[2017-05-11] MEDS: MILK OF MAGNESIA PO PRN (10:05)
[2017-05-11] MEDS: COLACE PO SCH ×2 (10:05→22:06)
[2017-05-11] MEDS ORDERED: NACL ONE (10:58)
--- NOTE | 2017-05-11 11:09 | Progress Note ---
Assessment and Plan - Patient Problems (1) S/P TRISTAN (total abdominal hysterectomy) Onset Date: 05/10/17 Current Visit: Yes Status: Resolved Plan to address problem: A: S/P TRISTAN - POD #2 Doing well Increase in creatinine P: Continue RPOC Will obtain a CT Scan of the pelvis to evaluate ureters and sigmoid mass Anticipate discharge in 24-48hrs Subjective - Subjective Date of service: 05/11/17 Principal diagnosis: s/p LAVH converted to TRISTAN - POD #2 Interval history: Pt is feeling well without complaints. Tolerating a reg diet without nausea or vomiting, ambulating and voiding without difficulty. Patient reports: appetite normal, voiding normally, pain well controlled, flatus , ambulating normally Objective - Vital Signs Latest vital signs: Vital Signs Temp Pulse Pulse Resp BP 05/11/17 08:02 99.2 F 84 20 116/60 05/11/17 05:42 18 05/11/17 04:05 78 05/11/17 01:00 18 05/11/17 00:09 18 05/11/17 00:00 99.7 F H 88 20 125/74 05/10/17 23:49 99.3 F 90 20 128/76 05/10/17 21:00 18 05/10/17 20:18 99.8 F H 72 20 105/69 05/10/17 16:47 98.8 F 76 20 110/68 05/10/17 12:20 99.8 F H 76 20 120/70 Intake and Output 05/10/17 05/11/17 05/11/17 22:59 06:59 14:59 Intake Total 240 720 360 Output Total 300 Balance 240 420 360 Intake: Oral 240 720 360 Output: Urine 300 Void 300 Other: Total, Intake Amount 240 240 360 Total, Output Amount 300 Voiding Method Toilet Toilet # Voids Void 1 - Exam Cardiovascular: Present: Regular rate Lungs: Present: Clear to auscultation Abdomen: Present: normal appearance, soft. Absent: tenderness (No CVAT) Extremities: Present: normal Incision: Present: normal, dry, intact - Labs Labs: Abnormal lab results 05/11/17 Range/Units 06:01 Glucose 107 H (65-100) mg/dL Calcium 7.7 L (8.4-10.2) mg/dL Laboratory Tests 05/08/17 05/08/1705/08/17 09:40 09:40 09:40 WBC 3.6 L RBC 3.87 Hgb 11.4 Hct 34.7 MCV 90 MCH 30 MCHC 33 RDW 15.4 H Plt Count 235 Add Manual Diff Complete Total Counted 100 Seg Neuts % (Manual) 37.0 L Band Neutrophils % 0 Lymphocytes % (Manual) 48.0 H Reactive Lymphs % (Man) 1.0 Monocytes % (Manual) 10.0 H Eosinophils % (Manual) 3.0 Basophils % (Manual) 1.0 Metamyelocytes % 0 Myelocytes % 0 Promyelocytes % 0 Blast Cells % 0 Nucleated RBC % Not Reportable Seg Neutrophils # Man 1.3 L Band Neutrophils # 0.0 Lymphocytes # (Manual) 1.7 Abs React Lymphs (Man) 0.0 Monocytes # (Manual) 0.4 Eosinophils # (Manual) 0.1 Basophils # (Manual) 0.0 Metamyelocytes # 0.0 Myelocytes # 0.0 Promyelocytes # 0.0 Blast Cells # 0.0 WBC Morphology Not Reportable Hypersegmented Neuts Not Reportable Hyposegmented Neuts Not Reportable Hypogranular Neuts Not Reportable Smudge Cells Not Reportable Toxic Granulation Not Reportable Toxic Vacuolation Not Reportable Dohle Bodies Not Reportable Pelger-Huet Anomaly Not Reportable Alma Rosa Rods Not Reportable Platelet Estimate Cons Clumped Platelets Not Reportable Plt Clumps, EDTA Not Reportable Large Platelets Few Giant Platelets Not Reportable Platelet Satelliting Not Reportable Plt Morphology Comment Not Reportable RBC Morphology Not Reportable Dimorphic RBCs Not Reportable Polychromasia Not Reportable Hypochromasia 1+ Poikilocytosis Not Reportable Anisocytosis 1+ Microcytosis Not Reportable Macrocytosis Not Reportable Spherocytes Not Reportable Pappenheimer Bodies Not Reportable Sickle Cells Not Reportable Target Cells Not Reportable Tear Drop Cells Not Reportable Ovalocytes Not Reportable Helmet Cells Not Reportable Gray-[place] Bodies Not Reportable [place] Rings Not Reportable Walnut Cells Not Reportable Bite Cells Not Reportable Crenated Cell Not Reportable Elliptocytes Not Reportable Acanthocytes (Spur) Not Reportable Rouleaux Not Reportable Hemoglobin C Crystals Not Reportable Schistocytes Not Reportable Malaria parasites Not Reportable Christopher Bodies Not Reportable Hem Pathologist Commnt No Sodium Potassium Chloride Carbon Dioxide Anion Gap BUN Creatinine Estimated GFR BUN/Creatinine Ratio Glucose Calcium HCG, Qual Negative Blood Type O POSITIVE Antibody Screen TNR JJ Antibody Screen Negative 05/09/17 05/10/17 05/10/17 12:35 03:48 03:48 WBC RBC Hgb 10.5 Hct 32.9 MCV MCH MCHC RDW Plt Count Add Manual Diff Total Counted Seg Neuts % (Manual) Band Neutrophils % Lymphocytes % (Manual) Reactive Lymphs % (Man) Monocytes % (Manual) Eosinophils % (Manual) Basophils % (Manual) Metamyelocytes % Myelocytes % Promyelocytes % Blast Cells % Nucleated RBC % Seg Neutrophils # Man Band Neutrophils # Lymphocytes # (Manual) Abs React Lymphs (Man) Monocytes # (Manual) Eosinophils # (Manual) Basophils # (Manual) Metamyelocytes # Myelocytes # Promyelocytes # Blast Cells # WBC Morphology Hypersegmented Neuts Hyposegmented Neuts Hypogranular Neuts Smudge Cells Toxic Granulation Toxic Vacuolation Dohle Bodies Pelger-Huet Anomaly Alma Rosa Rods Platelet Estimate Clumped Platelets Plt Clumps, EDTA Large Platelets Giant Platelets Platelet Satelliting Plt Morphology Comment RBC Morphology Dimorphic RBCs Polychromasia Hypochromasia Poikilocytosis Anisocytosis Microcytosis Macrocytosis Spherocytes Pappenheimer Bodies Sickle Cells Target Cells Tear Drop Cells Ovalocytes Helmet Cells Gray-[place] Bodies [place] Rings Blessing Cells Bite Cells Crenated Cell Elliptocytes Acanthocytes (Spur) Rouleaux Hemoglobin C Crystals Schistocytes Malaria parasites Christopher Bodies Hem Pathologist Commnt Sodium 140 138 Potassium 5.4 H 4.6 Chloride 102.6 104.0 Carbon Dioxide 23 20 L Anion Gap 20 19 BUN 14 12 Creatinine 0.6 L 1.0 D Estimated GFR > 60 > 60 BUN/Creatinine Ratio 23.33 12.00 Glucose 79 136 H Calcium 8.8 7.7 L HCG, Qual Blood Type Antibody Screen JJ Antibody Screen 05/11/17 06:01 WBC RBC Hgb Hct MCV MCH MCHC RDW Plt Count Add Manual Diff Total Counted Seg Neuts % (Manual) Band Neutrophils % Lymphocytes % (Manual) Reactive Lymphs % (Man) Monocytes % (Manual) Eosinophils % (Manual) Basophils % (Manual) Metamyelocytes % Myelocytes % Promyelocytes % Blast Cells % Nucleated RBC % Seg Neutrophils # Man Band Neutrophils # Lymphocytes # (Manual) Abs React Lymphs (Man) Monocytes # (Manual) Eosinophils # (Manual) Basophils # (Manual) Metamyelocytes # Myelocytes # Promyelocytes # Blast Cells # WBC Morphology Hypersegmented Neuts Hyposegmented Neuts Hypogranular Neuts Smudge Cells Toxic Granulation Toxic Vacuolation Dohle Bodies Pelger-Huet Anomaly Alma Rosa Rods Platelet Estimate Clumped Platelets Plt Clumps, EDTA Large Platelets Giant Platelets Platelet Satelliting Plt Morphology Comment RBC Morphology Dimorphic RBCs Polychromasia Hypochromasia Poikilocytosis Anisocytosis Microcytosis Macrocytosis Spherocytes Pappenheimer Bodies Sickle Cells Target Cells Tear Drop Cells Ovalocytes Helmet Cells Gray-[place] Bodies [place] Rings Blessing Cells Bite Cells Crenated Cell Elliptocytes Acanthocytes (Spur) Rouleaux Hemoglobin C Crystals Schistocytes Malaria parasites Christopher Bodies Hem Pathologist Commnt Sodium 140 Potassium 3.9 Chloride 104.3 Carbon Dioxide 24 Anion Gap 16 BUN 11 Creatinine 1.2 Estimated GFR > 60 BUN/Creatinine Ratio 9.16 Glucose 107 H Calcium 7.7 L HCG, Qual Blood Type Antibody Screen JJ Antibody Screen
--- NOTE | 2017-05-11 12:30 | Cat Scan Report ---
CT SCAN OF THE ABDOMEN AND PELVIS WITHOUT AND WITH CONTRAST: HISTORY: Pain, suspect ureteral injury. TECHNIQUE: Helical CT before and after IV contrast. Sagittal and coronal reformatted images. FINDINGS: No comparison. There is mild to moderate free air in the abdomen. This may be secondary to a recent surgical procedure. Otherwise, visceral perforation should be considered. The site of perforation is not clearly evident. Please correlate with the patient's clinical presentation and history. There is moderate left hydronephrosis. No obstructing lesion is identified in the left ureter. This may represent a distal left ureteral stricture. The right renal collecting system is unremarkable. There is a small amount of gas in the bladder which may be secondary to instrumentation. The kidneys are unremarkable. The liver, biliary system, pancreas, spleen and adrenal glands are within normal limits. The bowel loops are unremarkable given no oral contrast was administered. No abnormal dilatation is appreciated. Appendectomy changes are suspected. Hysterectomy changes. No adnexal cyst or mass. Heart size is normal. Trace bilateral pleural effusions and mild bibasilar atelectasis is noted. IMPRESSION: Free intraperitoneal air is identified, please see above. Left hydronephrosis. No ureteral injury is identified. Trace bilateral pleural effusions.
--- NOTE | 2017-05-11 13:28 | Progress Note ---
Subjective Narrative: seen Pt today indicated to her what was found . a firm growth in the rectosigmoid attached to a loop fo smaal bowel , we did air insufflation test under water , no leaks seen ,inducated to Pt the need for colonoscopy , she will tell Dr Esparza ,will see Pt PRN . Objective Vital Signs - 12hr 05/11/17 05/11/17 05/11/17 04:05 05:42 08:02 Temperature 99.2 F Pulse Rate 84 Pulse Rate [ 78 Left Radial] Respiratory 18 20 Rate Blood Pressure 116/60 - Labs 05/10/17 03:48 05/11/17 06:01 Diabetes panel 05/11/17 Range/Units 06:01 Sodium 140 (137-145) mmol/L Potassium 3.9 (3.6-5.0) mmol/L Chloride 104.3 (98-107) mmol/L Carbon Dioxide 24 (22-30) mmol/L BUN 11 (7-17) mg/dL Creatinine 1.2 (0.7-1.2) mg/dL Glucose 107 H (65-100) mg/dL Calcium 7.7 L (8.4-10.2) mg/dL Calcium panel 05/11/17 Range/Units 06:01 Calcium 7.7 L (8.4-10.2) mg/dL Pituitary panel 05/11/17 Range/Units 06:01 Sodium 140 (137-145) mmol/L Potassium 3.9 (3.6-5.0) mmol/L Chloride 104.3 (98-107) mmol/L Carbon Dioxide 24 (22-30) mmol/L BUN 11 (7-17) mg/dL Creatinine 1.2 (0.7-1.2) mg/dL Glucose 107 H (65-100) mg/dL Calcium 7.7 L (8.4-10.2) mg/dL Adrenal panel 05/11/17 Range/Units 06:01 Sodium 140 (137-145) mmol/L Potassium 3.9 (3.6-5.0) mmol/L Chloride 104.3 (98-107) mmol/L Carbon Dioxide 24 (22-30) mmol/L BUN 11 (7-17) mg/dL Creatinine 1.2 (0.7-1.2) mg/dL Glucose 107 H (65-100) mg/dL Calcium 7.7 L (8.4-10.2) mg/dL
--- NOTE | 2017-05-11 20:15 | XRay Report ---
FINAL REPORT EXAM: XR ABDOMEN 2V HISTORY: left hydroureter TECHNIQUE: Two view abdomen. Two images PRIORS: CT scan from 05/11/2017 FINDINGS: The pneumoperitoneum seen in the CT scan is not well seen in the current study. There is a nonobstructed bowel-gas pattern. Contrast is seen in the left ureter. There is moderate hydro ureter and hydro nephrosis on the left side. Contrast is seen in the bladder as well. There is a small amount of gas again noted in the bladder. No acute osseous abnormality is identified. IMPRESSION: 1. Left hydronephrosis and hydroureter is again noted. Etiology is uncertain. Possibility of distal ureteral stricture is not excluded. 2. Small amount of gas is seen in the bladder. This is a nonspecific finding. It may be related to recent catheterization or other instrumentation.
--- NOTE | 2017-05-11 21:41 | Progress Note ---
Assessment and Plan above noted no flank pain rectosigmoid mass L hydro may nee cysto or L perc pt aware dictated Subjective Date of service: 05/11/17 Principal diagnosis: s/p LAVH converted to TRISTAN - POD #2 Objective - Constitutional Vitals: Vital Signs - 12hr 05/11/17 05/11/17 05/11/17 11:39 16:27 20:10 Temperature 97.8 F 99.3 F 98.4 F Pulse Rate 82 86 93 H Respiratory 18 18 20 Rate Blood Pressure 116/70 118/68 132/77 General appearance: Present: no acute distress - Neck Neck: supple - Respiratory Respiratory effort: normal Extremities: no ischemia - Gastrointestinal General gastrointestinal: Present: soft, distended - Labs CBC & Chem 7: 05/10/17 03:48 05/11/17 06:01 Labs: Abnormal lab results 05/11/17 Range/Units 06:01 Glucose 107 H (65-100) mg/dL Calcium 7.7 L (8.4-10.2) mg/dL
[2017-05-12] MEDS: TORADOL IV SCH ×3 (00:39→12:00)
--- NOTE | 2017-05-12 05:35 | Consultation ---
HISTORY OF PRESENT ILLNESS: The patient is a 36-year-old woman who had hysterectomy with complicated surgery with rectosigmoid mass. The surgery was converted to open. She had no pain. PAST SURGICAL HISTORY: History of ovarian cystectomy and previous tubal ligation. She denies any recent scans preoperatively. She has moderate left hydronephrosis without pain, fever or chills. PAST MEDICAL HISTORY: As mentioned above. PAST SURGICAL HISTORY: As mentioned above. ALLERGIES: Negative. FAMILY HISTORY: Noncontributory. REVIEW OF SYSTEMS: Basically unremarkable. PHYSICAL EXAMINATION: GENERAL: She is awake. She is in no distress. ABDOMEN: Slightly distended. No localized tenderness. No CVA tenderness. IMPRESSION: Previous pelvic surgery with recent open hysterectomy with exploratory laparotomy with left hydronephrosis. A delayed film shows dilatation of the ureter distally. I would recommend left percutaneous nephrostomy to stabilize left kidney with a nephrostogram. JOB# [id number] JILLIAN/CARMEN
[2017-05-12] MEDS: PERCOCET 5/325 PO PRN ×3 (06:30→21:00)
[2017-05-12] MEDS: COLACE PO SCH ×3 (09:42→22:00)
--- NOTE | 2017-05-12 09:56 | Progress Note ---
Assessment and Plan - Patient Problems (1) S/P TRISTAN (total abdominal hysterectomy) Onset Date: 05/10/17 Current Visit: Yes Status: Resolved Plan to address problem: A: S/P TRISTAN - POD #3 Doing well Increased creatinine Mild left hydronephrosis P: Appreciate Urology consultation Dispo as per Urology Subjective - Subjective Date of service: 05/12/17 Principal diagnosis: s/p LAVH converted to TRISTAN - POD #3 Interval history: Pt is feeling well without complaints. Tolerating a reg diet without nausea or vomiting, ambulating and voiding without difficulty. Denies flank pain. Patient reports: appetite normal, voiding normally, pain well controlled, flatus , ambulating normally Objective - Vital Signs Latest vital signs: Vital Signs Temp Pulse Resp BP 05/12/17 08:22 98.9 F 84 20 110/80 05/12/17 04:05 98.9 F 78 20 118/73 05/12/17 00:00 99.0 F 86 20 109/63 05/11/17 20:10 98.4 F 93 H 20 132/77 05/11/17 16:27 99.3 F 86 18 118/68 05/11/17 11:39 97.8 F 82 18 116/70 Intake and Output 05/11/17 05/12/17 05/12/17 22:59 06:59 14:59 Intake Total 240 240 Balance 240 240 Intake: Oral 120 240 Intake, Free Water 120 Other: Total, Intake Amount 120 240 # Voids Void 1 1 - Exam Cardiovascular: Present: Regular rate Lungs: Present: Clear to auscultation Abdomen: Present: normal appearance, soft. Absent: tenderness Incision: Present: normal, dry, intact
[2017-05-13] MEDS: TORADOL IV SCH ×2 (06:00)
--- NOTE | 2017-05-13 07:23 | Progress Note ---
Assessment and Plan A: S/P TRISTAN - POD #4 Doing well Mild left hydronephrosis P: Appreciate Urology consultation NPO for cysto and possible perc? stent? Subjective - Subjective Date of service: 05/13/17 Principal diagnosis: s/p LAVH converted to TRISTAN - POD #4 Interval history: Patient seen and examined stable with no issues. Nothing by mouth for planned urologic procedure today Patient reports: appetite normal, voiding normally, pain well controlled, flatus , ambulating normally, no dizzy ambulation, no nauseated Objective - Vital Signs Latest vital signs: Vital Signs Temp Pulse Resp BP 05/13/17 05:00 98.4 F 62 18 109/72 05/12/17 23:20 99.1 F 69 16 119/66 05/12/17 21:00 18 05/12/17 20:55 99.6 F 66 18 141/80 05/12/17 16:35 99.6 F 86 20 116/54 05/12/17 12:28 99.0 F 80 20 118/70 05/12/17 08:22 98.9 F 84 20 110/80 Intake and Output 05/12/17 05/13/17 05/13/17 22:59 06:59 14:59 Intake Total 280 Balance 280 Intake: Intake, Free Water 280 Other: # Voids Void 1 1 - Exam Abdomen: Present: normal appearance, soft, normal bowel sounds. Absent: distention, tenderness, guarding, rigidity Extremities: Present: normal
--- NOTE | 2017-05-13 08:00 | Progress Note ---
Assessment and Plan no flank pain last kub seen seignificant columnization with delay parenchyma is good suggesting more of an acute issue will await perc and nephrostogram Subjective Date of service: 05/13/17 Principal diagnosis: s/p LAVH converted to TRISTAN - POD #4 Objective - Constitutional Vitals: Vital Signs - 12hr 05/12/17 05/12/17 05/12/17 20:55 21:00 23:20 Temperature 99.6 F 99.1 F Pulse Rate 66 69 Respiratory 18 18 16 Rate Blood Pressure 141/80 119/66 05/13/17 05:00 Temperature 98.4 F Pulse Rate 62 Respiratory 18 Rate Blood Pressure 109/72 General appearance: Present: no acute distress - Respiratory Respiratory effort: normal - Gastrointestinal General gastrointestinal: Present: non-tender - Labs CBC & Chem 7: 05/10/17 03:48 05/11/17 06:01
[2017-05-13] MEDS ORDERED: NACL 0.9% 500 ML 1,000 ML ONE ×2 (11:49→11:51)
[2017-05-13] MEDS ORDERED: XYLOCAINE 2% INFILTRATI ONE (11:49)
[2017-05-13] MEDS ORDERED: SUBLIMAZE ONE (11:50)
[2017-05-13] MEDS: VERSED ONE ×2 (12:00→12:21)
[2017-05-13] MEDS ORDERED: LEVAQUIN 500MG/100ML 500 MG/100 ML BAG IV ONE (12:02)
[2017-05-13] MEDS: SUBLIMAZE ONE ×2 (12:22→12:24)
--- NOTE | 2017-05-13 12:52 | Operative Report ---
Operative Report Operative Report: Procedure: 1. Ultrasound and fluoroscopic guided placement of a left nephrostomy catheter. 2. Left antegrade nephrostogram. Date of Procedure: 05/13/2017 History/Indication: This is a 36-year-old female who developed hydronephrosis after a recent pelvic surgery. An injury to the ureter was suspected, and a nephrostomy was requested. Physician: Vani Sanderson MD Technique/Procedural Details: Informed consent was obtained. The patient was placed in the prone position on the procedure table. A timeout was performed. The patient was prepped and draped in the usual sterile fashion. Preliminary sonography of the left flank was performed, and permanent images were acquired. Local anesthetic was administered. Under continuous ultrasound guidance, a long 21-gauge needle was advanced into a posterior/inferior left renal calyx. Urine was aspirated, and contrast was injected to confirm placement within the collecting system. The needle was exchanged over an old 018 wire for an Accustick system. Through the Accustick outer piece, a Glidewire was advanced into the mid ureter. The Glidewire was removed over a short vertebral catheter. Contrast was again injected. The vertebral catheter was removed over an Amplatz wire. Over the Amplatz wire, an 8 [place] nephrostomy catheter was advanced. The locking loop was formed, and contrast was injected to confirm placement. The drain was secured to the skin with 2-0 Ethilon suture. A drainage bag was connected. Sterile dressings were placed. A final image was acquired. The patient was then transported off the table in good condition. Discussion: There is successful placement of an 8 [place] nephrostomy catheter and to the left kidney. Contrast injection and aspiration demonstrates that the newly placed catheter fills and decompresses the collecting system well. There is hydroureter and hydronephrosis. The bladder and distal ureter are not seen. There is a somewhat sharply demarcated truncation of the distal ureter. Specimen: None EBL: <5 cc
[2017-05-13] MEDS: PERCOCET 5/325 PO PRN (19:45)
[2017-05-14] MEDS: TORADOL IV SCH
[2017-05-14] MEDS: COLACE PO SCH (00:11)
[2017-05-14] MEDS: PERCOCET 5/325 PO PRN (03:26)
--- NOTE | 2017-05-14 07:49 | Progress Note ---
Assessment and Plan A: S/P TRISTAN - POD #5/POD # 1 s/p L nephrostomy cath - Doing well P: -Discharge home -Up in clinic in 2 weeks with urology -Follow-up in my clinic in 3 weeks Subjective - Subjective Date of service: 05/14/17 Principal diagnosis: s/p LAVH converted to TRISTAN - POD #5, s/p L Nephrostomy catheter Interval history: Patient seen and examined stable with no issues. Status post Perc tube by urology and is cleared for discharge home Patient reports: appetite normal, voiding normally, pain well controlled, flatus , ambulating normally, no dizzy ambulation, no nauseated Objective - Vital Signs Latest vital signs: Vital Signs Temp Pulse Pulse Resp BP 05/14/17 04:30 98.6 F 69 16 101/81 05/14/17 03:26 18 05/14/17 01:30 72 20 05/14/17 00:00 98.6 F 80 16 111/66 05/13/17 20:43 18 05/13/17 19:45 18 05/13/17 19:30 98.6 F 85 16 140/74 05/13/17 16:00 98.5 F 80 18 156/86 05/13/17 13:35 98.4 F 59 L 18 141/91 05/13/17 08:10 98.9 F 65 19 137/80 Intake and Output 05/13/17 05/14/17 05/14/17 22:59 06:59 14:59 Intake Total 420 Output Total 1550 200 Balance -1130 -200 Intake: Intake, Free Water 420 Output: Urine 1300 200 Indwelling Catheter 1000 200 Void 300 Other 250 Other: Total, Output Amount 200 200 Voiding Method Nephrostomy (Left) Nephrostomy (Left) - Exam Abdomen: Present: normal appearance, soft. Absent: distention, tenderness, guarding, mass, rigidity Incision: Present: dry, intact
--- NOTE | 2017-05-14 07:55 | Discharge Summary ---
Providers - Providers Date of Admission: 05/09/17 17:02 Date of discharge: 05/14/17 Attending physician: ELLEN DE LOS SANTOS 05/11/17 17:50 Consult to Physician [CONS] Urgent Consulting Provider: CHRISTINE ROSAS Reason For Exam: left hydronephrosis Place consult to:: Answering service Notified:: Answering service Phone number called:: [phone] Was contact made?: No Time called:: 17:51 05/11/17 21:45 Consult to Physician [CONS] Urgent Consulting Provider: CHRISTINE ROSAS Reason For Exam: left hydro Place consult to:: dr rebollar Notified:: yes Was contact made?: Yes Primary care physician: [employer] Hospitalization Reason for admission: other (status post LAVH converted to TRISTAN) Procedure: other (LAVH converted to TRISTAN, adhesiolysis, left nephrostomy catheter ) Incision: dry, intact Discharge diagnosis: other (s/p LAVH converted to TRISTAN for pelvic pain, Adhesions , HGSIL and Fibroids, s/p Nephrostomy catheter) Pertinent studies: CT scan Abd ABD X-ray Nephrostogram Hospital course: C/O:Chronic Pelvic pain HGSIL on PAP 36-year-old presents for surgery. She has had pelvic pain 5 years was previously seen by an [employer] who recommended a hysterectomy but she declined due to social reasons. She also had HGSIL on Pap obtained this year. She is status post transvaginal ultrasound on 02/2017 which shows an ~ 11 cm uterus with a ~ 6 cm fibroid which appeared necrotic. Right ovary is large and septated. Left ovary is normal. Myometrium is diffuse consistent with adenomyosis possible endometrial polyp. In the OR, doing laparoscopy patient was noted to have severe adhesive disease. Procedure was converted to open laparotomy. She had total abdominal hysterectomy, adhesiolysis of severe adhesions of bowel to the uterus. Intraoperative consult was requested from general surgery to examine the bowel. A small mass was palpated in the sigmoid colon and she was advised to have GI scope at later date. An increase in her creatinine was noted, CT scan confirmed hydroureter on the left. Urology consultation was requested After workup including further imaging and dye study, patient was taken to the OR for left nephrostomy catheter to relieve the distal ureteral obstruction. She is discharged on post op day #5 TRISTAN and post operative day #1 left ureteral catheter placement. Condition at discharge: Good Disposition: DC-01 TO HOME OR SELFCARE - Discharge Diagnoses (1) S/P TRISTAN (total abdominal hysterectomy) Status: Resolved (2) Female pelvic peritoneal adhesions Status: Acute Plan - Discharge Medications Prescriptions: Ibuprofen [Motrin 600 MG tab] 600 mg PO Q8H PRN #30 tablet PRN Reason: Pain Multivitamin with Iron [Multivitamins with Iron] 1 each PO DAILY #30 tablet oxyCODONE /ACETAMINOPHEN [Percocet 5/325] 1 tab PO Q6HR PRN #30 tablet PRN Reason: Pain - Provider Discharge Summary Activity: no sex for 6 weeks, no heavy lifting 4 weeks, no strenuous exercise Diet: routine Additional instructions: [] Smoking cessation referral if applicable(refer to patient education folder for contact #) [] Refer to [facility]'s [facility] Booklet Call your doctor immediately for: * Fever > 100.5 * Heavy vaginal bleeding ( >1 pad per hour) * Severe persistent headache * Shortness of breath * Reddened, hot, painful area to leg or breast * Drainage or odor from incision. * Keep incision clean and dry at all times and follow doctor's instructions regarding bathing/showering - Follow up plan Follow up: PRIMARY CARE, [Primary Care Provider] - 7 Days CHRISTINE ROSAS MD [Staff Physician] - 14 Days ELLEN DE LOS SANTOS MD [Staff Physician] - 06/04/17
[2017-05-14 08:46] VITALS: BP 110/80
== END 2017-05-14 09:20 | disposition home or self-care (01) | DRG 742 ==
LOC: OR 10:27 → OB 17:02
PROVIDERS: ADMIT Obstetrics & Gynecology Gynecology; ATTEND Obstetrics & Gynecology Gynecology
PROC: 0UT90ZZ Resection of Uterus, Open Approach (ICD-10-PCS; principal; 2017-05-09)
PROC: 0UTC0ZZ Resection of Cervix, Open Approach (ICD-10-PCS; 2017-05-09)
PROC: 0UT60ZZ Resection of Left Fallopian Tube, Open Approach (ICD-10-PCS; 2017-05-09)
PROC: 0T9130Z Drainage of Left Kidney with Drainage Device, Percutaneous Approach (ICD-10-PCS; 2017-05-13)
PROC: BT121ZZ Fluoroscopy of Left Kidney using Low Osmolar Contrast (ICD-10-PCS; 2017-05-13)
DX: D25.9 Leiomyoma of uterus, unspecified (principal); N13.30 Unspecified hydronephrosis; N73.6 Female pelvic peritoneal adhesions (postinfective); K66.0 Peritoneal adhesions (postprocedural) (postinfection); R87.613 High grade squamous intraepithelial lesion on cytologic smear of cervix (HGSIL); N80.0 Endometriosis of uterus; N84.0 Polyp of corpus uteri; Z98.51 Tubal ligation status
CPT/HCPCS: 36415; 50432; 74020; 74178; 80048; 84703; 85007; 85014; 85018; 85025; 86850; 86900; 86901; 88302; 88307; C1729; C1751; C1765; C1769; J0690; J1100; J1170; J1885; J1956; J2250; J2270; J2405; J2704; J2710; J3010; J7030; J7040; J7121; Q9967

== ENCOUNTER 2017-06-25 21:18 | Inpatient (IN) | payer OTHER ==
[2017-06-25 22:01] LABS: Basophils % (Auto) 0.5 % (0.0-1.8); Eosinophils % (Auto) 1.6 % (0.0-4.3); Hematocrit 35.5 % (30.3-42.9); Hemoglobin 11.4 gm/dl (10.1-14.3); Mean Corpuscular HGB Conc 32 % (30-34); Mean Corpuscular Hemoglobin 29 pg (28-32); Mean Corpuscular Volume 91 fl (79-97); Platelet Count 393 K/mm3 (140-440); Red Blood Count 3.93 M/mm3 (3.65-5.03); Red Cell Distribution Width 15.7 % (13.2-15.2); White Blood Count 9.8 K/mm3 (4.5-11.0)
[2017-06-25 22:16] LABS: Alanine Aminotransferase 7 units/L (7-56); Albumin 4.1 g/dL (3.9-5); Albumin/Globulin Ratio 1.1 %; Alkaline Phosphatase 69 units/L (35-129); Anion Gap 21 mmol/L; Blood Urea Nitrogen 17 mg/dL (7-17); Calcium 8.9 mg/dL (8.4-10.2); Carbon Dioxide 21 mmol/L (22-30); Chloride 104.2 mmol/L (98-107); Glucose 107 mg/dL (65-100); Lipase 23 units/L (13-60); Potassium 4.4 mmol/L (3.6-5.0); Sodium 142 mmol/L (137-145); Total Protein 7.9 g/dL (6.3-8.2)
[2017-06-26 00:07] LABS: Bacteria,Urine 1+ /HPF (Negative); Bilirubin,Urine NEG (Negative); Blood,Urine NEG (Negative); Ketones,Urine TR mg/dL (Negative); Leukocyte Esterase,Urine LG (Negative); Mucus,Urine 1+ /HPF; Nitrite,Urine NEG (Negative)
[2017-06-26] MEDS ORDERED: TORADOL IV ONE (02:33)
[2017-06-26] MEDS ORDERED: NACL 0.9% 1000 ML 1,000 ML IV ONE (02:33)
[2017-06-26] MEDS ORDERED: ZOFRAN IV ONE (02:33)
--- NOTE | 2017-06-26 02:38 | Emergency Department Report ---
HPI - General Chief Complaint: Abdominal Pain Time Seen by Provider: 06/26/17 02:27 - [facility] HPI: Room 6 The patient is a 36-year-old female presenting with a chief complaint of nausea vomiting and abdominal pain. The patient had a nephrostomy tube placed in April 2017 secondary to left-sided hydroureter discovered during a laparoscopic hysterectomy. The patient followed up at vessel surgery today was seen by Dr. Jonas who states he imaged the percutaneous nephrostomy tube and then removed it today in the office. The patient states at approximately 13:00 she developed pain in the left lower quadrant of her abdomen as sharp and aching in nature. Patient states the pain has been constant. Patient states proximal one hour later she developed nausea and vomiting. Patient denies dysuria or hematuria. Patient denies any history of fever. The patient states she contacted Dr. Jonas who in turn instructed her to come to the ED Location: [see above] Duration: [see above] Quality: Sharp Severity: Moderate Modifying factors: [see above] Context: [see above] Mode of transportation: The patient drove herself to the emergency department and there are no visitors present ED Past Medical Hx - Past Medical History Previous Medical History?: Yes Additional medical history: fibroids,ovarian cyst - Surgical History Past Surgical History?: Yes Additional Surgical History: hysterctomy 05/09/17, nephrostomy tube, removed 06/25 left kidney - Family History Family history: no significant - Social History Smoking Status: Never Smoker Substance Use Type: None (denies illicit drug use) - Medications Home Medications: Home Medications Medication Instructions Recorded Confirmed Last Taken Type Ibuprofen [Motrin 600 MG tab] 600 mg PO Q8H PRN #30 tablet 05/09/17 Unknown Rx Multivitamin with Iron 1 each PO DAILY #30 tablet 05/09/17 Unknown Rx [Multivitamins with Iron] oxyCODONE /ACETAMINOPHEN [Percocet 1 tab PO Q6HR PRN #30 tablet 05/09/17 Unknown Rx 5/325] ED Review of Systems ROS: Stated complaint: ABDOMINAL PAIN Other details as noted in HPI Comment: All other systems reviewed and negative Constitutional: denies: chills, fever Eyes: denies: eye pain, eye discharge, vision change ENT: denies: ear pain, throat pain Respiratory: denies: cough, shortness of breath, wheezing Cardiovascular: denies: chest pain, palpitations Endocrine: no symptoms reported Gastrointestinal: abdominal pain, nausea, vomiting Genitourinary: denies: urgency, dysuria, discharge Musculoskeletal: denies: back pain, joint swelling, arthralgia Skin: denies: rash, lesions Neurological: denies: headache, weakness, paresthesias Psychiatric: denies: anxiety, depression Hematological/Lymphatic: denies: easy bleeding, easy bruising Physical Exam - Physical Exam Vital Signs: Vital Signs 06/25/17 06/26/17 21:27 02:07 Temperature 97.9 F 97.7 F Pulse Rate 87 58 L Respiratory 18 18 Rate Blood Pressure 139/101 Blood Pressure 127/73 [Left] O2 Sat by Pulse 100 98 Oximetry Physical Exam: GENERAL: The patient is well-developed well-nourished female lying on stretcher. Be in mild discomfort. [] HEENT: Normocephalic. Atraumatic. Extraocular motions are intact. Patient has moist mucous membranes. NECK: Supple. Trachea midline CHEST/LUNGS: Clear to auscultation. There is no respiratory distress noted. HEART/CARDIOVASCULAR: Regular. There is no tachycardia. There is no gallop rub or murmur. ABDOMEN: Abdomen is soft, with mild discomfort to palpation in the left lower quadrant. Patient has normal bowel sounds. There is no abdominal distention. SKIN: There is no rash. There is no edema. There is no diaphoresis. NEURO: The patient is awake, alert, and oriented. The patient is cooperative. The patient has normal speech MUSCULOSKELETAL: There is no evidence of acute injury. ED Course Vital Signs 06/25/17 06/26/17 21:27 02:07 Temperature 97.9 F 97.7 F Pulse Rate 87 58 L Respiratory 18 18 Rate Blood Pressure 139/101 Blood Pressure 127/73 [Left] O2 Sat by Pulse 100 98 Oximetry - Consultations Consultation #1: 06/26/17 02:37 Dr. Jonas paged 06/26/17 02:[address] Jonas - recommends noncontrast CT abdomen and pelvis to evaluate for hydroureter since percutaneous nephrostomy tube removal 06/26/17 05:[address] Jonas-requests hospitalist admit the patient to the hospital and to keep the patient NPO in preparation of replacement of percutaneous nephrostomy tube ED Medical Decision Making - Lab Data Result diagrams: 06/25/17 21:42 06/25/17 21:42 Laboratory Tests 06/25/17 06/25/17 06/25/17 21:42 21:42 Unknown WBC 9.8 RBC 3.93 Hgb 11.4 Hct 35.5 MCV 91 MCH 29 MCHC 32 RDW 15.7 H Plt Count 393 Lymph % (Auto) 23.5 [place] % (Auto) 9.4 H Eos % (Auto) 1.6 Baso % (Auto) 0.5 Lymph # 2.3 [place] # 0.9 H Eos # 0.2 Baso # 0.0 Seg Neutrophils % 65.0 Seg Neutrophils # 6.4 Sodium 142 Potassium 4.4 Chloride 104.2 Carbon Dioxide 21 L Anion Gap 21 BUN 17 Creatinine 1.0 Estimated GFR > 60 BUN/Creatinine Ratio 17.00 Glucose 107 H Calcium 8.9 Total Bilirubin 0.20 AST 12 ALT 7 Alkaline Phosphatase 69 Total Protein 7.9 Albumin 4.1 Albumin/Globulin Ratio 1.1 Lipase 23 Urine Color Yellow Urine Turbidity Clear Urine pH 6.0 Ur Specific [place] 1.030 Urine Protein 30 mg/dl Urine Glucose (UA) Neg Urine Ketones Tr Urine Blood Neg Urine Nitrite Neg Urine Bilirubin Neg Urine Urobilinogen 2.0 Ur Leukocyte Esterase Lg Urine WBC (Auto) 9.0 H Urine RBC (Auto) 5.0 U Epithel Cells (Auto) 12.0 Urine Bacteria (Auto) 1+ Urine Mucus 1+ - Radiology Data Radiology results: report reviewed (CT abdomen and pelvis), image reviewed (CT abdomen and pelvis) CT abdomen and pelvis (read by radiologist)-severe left hydroureteronephrosis without obstructing stone identified. - Differential Diagnosis renal colic, hydroureter, UTI, pyelonephritis, diverticulitis Critical care attestation.: If time is entered above; I have spent that time in minutes in the direct care of this critically ill patient, excluding procedure time. ED Disposition Clinical Impression: Hydroureteronephrosis, Acute abdominal pain, Nausea & vomiting Disposition: 09 OP ADMIT IP TO THIS HOSP Is pt being admited?: Yes Does the pt Need Aspirin: No Condition: Fair Instructions: Abdominal Pain (ED) Referrals: ELLEN DE LOS SANTOS MD [Primary Care Provider] - 3-5 Days Time of Disposition: 05:09 (hospitalist paged)
[2017-06-26] MEDS ORDERED: REGLAN IV ONE (03:53)
--- NOTE | 2017-06-26 04:59 | Cat Scan Report ---
FINAL REPORT EXAM: CT ABDOMEN PELVIS WO CON HISTORY: LLQ Abd Pain. left PCN removed today TECHNIQUE: CT images obtained through the Abdomen and Pelvis without contrast. Transaxial,coronal and sagittal reformats are provided. PRIORS: 05/11/2017 FINDINGS: Imaged intrathoracic contents are unremarkable. Severe left hydroureteronephrosis. Nonobstructing 2 millimeter left renal stones. Mild perinephric stranding. Left renal enlargement. No right-sided nephrolithiasis or hydroureteronephrosis. Mild segmental right ureteral ectasia may be due to peristalsis. No stones in the urinary bladder. The liver, gallbladder, pancreas, spleen, and adrenal glands demonstrate a normal noncontrast appearance. Hollow enteric organs are normal in course and caliber. Appendix is surgically absent. There are chronic inflammatory findings involving the ileocecal region. No intra-abdominal free air/fluid or lymphadenopathy. Aorta is normal in course and caliber. Prior hysterectomy. No significant free fluid in the pelvis. A cystic structure in the central pelvis measuring 7.8 x 5 cm on axial image 131 may be left adnexal in origin. Superficial soft tissues are remarkable for midline surgical scarring. Left flank evidence of recent percutaneous nephrostomy tract. No edema or focal fluid collection. No acute or aggressive appearing skeletal findings. IMPRESSION: Severe left hydroureteronephrosis without obstructing stone identified. Cystic structure in the central pelvis measuring 7.8 x 5 cm is new compared to 05/11/2017 and may be left adnexal in origin. Routine pelvic ultrasound follow-up is recommended.
[2017-06-26] MEDS ORDERED: SUBLIMAZE IV ONE (05:07)
--- NOTE | 2017-06-26 09:59 | History and Physical Report ---
History of Present Illness Date of examination: 06/26/17 Date of admission: 06/26/2017 Chief complaint: Abdominal pain History of present illness: Patient is 36 years old female with past medical history fibroids and ovarian cyst who presents to the emergency department with a chief complaint of nausea vomiting and abdominal pain. She localizes the pain to her right lower quadrant area and states that it radiates to her right upper rib. She notes that it became markedly worse after removal of nephrostomy tube. She described as sharp pain. The intensity of the pain has been increasing since yesterday and on pain scale she now rates the pain at 8 out of 10. Also she developed nausea and vomiting. The patient had a nephrostomy placed in April 2017 secondary to left-sided hydroureter discovered during a laparoscopic hysterectomy. The Percutaneous nephrostomy tube was placed by Dr. Jonas.Patient denies dysuria or hematuria, fever or chills. Past History Past Medical History: other (fibroids and ovarian cyst) Past Surgical History: hysterectomy Social history: denies: smoking, alcohol abuse, prescription drug abuse Family history: CAD, hypertension Medications and Allergies Allergies Allergy/AdvReac Type Severity Reaction Status Date / Time No Known Allergies Allergy Unverified 05/02/17 16:44 Home Medications Medication Instructions Recorded Confirmed Last Taken Type Ibuprofen [Motrin 600 MG tab] 600 mg PO Q8H PRN #30 tablet 05/09/17 06/26/17 Unknown Rx Multivitamin with Iron 1 each PO DAILY #30 tablet 05/09/17 06/26/17 Unknown Rx [Multivitamins with Iron] oxyCODONE /ACETAMINOPHEN [Percocet 1 tab PO Q6HR PRN #30 tablet 05/09/17 Unknown Rx 5/325 mg] Active Meds: Active Medications Bisacodyl (Dulcolax) 10 mg NM QDAY PRN PRN Reason: constipation unrelieved by MOM Enoxaparin Sodium (Lovenox) 40 mg SUB-Q QDAY KWASI Sodium Chloride (Nacl 0.9% 1000 Ml) 1,000 mls @ 75 mls/hr IV DIRECT KWASI Morphine Sulfate (Morphine) 2 mg IV Q4H PRN PRN Reason: Pain, Moderate (4-6) Ondansetron HCl (Zofran) 4 mg IM Q4H PRN PRN Reason: Nausea And Vomiting Review of Systems Constitutional: no weight loss, no weight gain, no fever, no chills Ears, nose, mouth and throat: no ear discharge, no tinnitis, no decreased hearing, no nose pain, no nasal congestion Breasts: no change in shape, no swelling, no mass Cardiovascular: no orthopnea, no palpitations, no rapid/irregular heart beat, no edema Respiratory: no excessive sputum, no hemoptysis, no shortness of breath Gastrointestinal: abdominal pain, nausea, vomiting, no diarrhea, no constipation , no change in bowel habits Genitourinary Female: no pelvic pain, no flank pain, no menorrhagia, no dysuria , no urinary frequency Menstruation: no post hysterectomy, no ammenorrhea on BC, no period normal Musculoskeletal: no shooting arm pain, no arm numbness/tingling, no low back pain Integumentary: no pruritis, no redness, no sores Neurological: no head injury, no transient paralysis, no paralysis Psychiatric: no memory loss, no change in sleep habits, no sleep disturbances, no insomnia Endocrine: no polyphagia, no excessive thirst, no polydipsia, no polyuria Hematologic/Lymphatic: no easy bruising, no easy bleeding Allergic/Immunologic: no urticaria, no allergic rhinitis Exam - Constitutional Vitals: Temp Pulse Resp BP Pulse Ox 97.7 F 58 L 18 114/68 100 06/26/17 02:07 06/26/17 02:07 06/26/17 02:07 06/26/17 09:21 06/26/17 09:21 General appearance: Present: no acute distress - EENT Eyes: Present: PERRL ENT: hearing intact - Neck Neck: Present: supple - Respiratory Respiratory effort: normal Respiratory: bilateral: CTA - Cardiovascular Rhythm: regular Heart Sounds: Present: S1 & S2 - Extremities Extremities: no ischemia Peripheral Pulses: within normal limits - Abdominal General gastrointestinal: Present: soft, non-tender, other Localized gastrointestinal: guarding: LLQ - Rectal Rectal Exam: deferred - Integumentary Integumentary: Present: clear, warm, dry - Musculoskeletal Musculoskeletal: strength equal bilaterally - Psychiatric Psychiatric: appropriate mood/affect - Neurologic Neurologic: CNII-XII intact - Allied Health Allied health notes reviewed: nursing Results - Labs CBC & Chem 7: 06/25/17 21:42 06/25/17 21:42 Labs: Laboratory Last Values WBC 9.8 K/mm3 (4.5-11.0) 06/25/17 21:42 RBC 3.93 M/mm3 (3.65-5.03) 06/25/17 21:42 Hgb 11.4 gm/dl (10.1-14.3) 06/25/17 21:42 Hct 35.5 % (30.3-42.9) 06/25/17 21:42 MCV 91 fl (79-97) 06/25/17 21:42 MCH 29 pg (28-32) 06/25/17 21:42 MCHC 32 % (30-34) 06/25/17 21:42 RDW 15.7 % (13.2-15.2) H 06/25/17 21:42 Plt Count 393 K/mm3 (140-440) 06/25/17 21:42 Lymph % (Auto) 23.5 % (13.4-35.0) 06/25/17 21:42 [place] % (Auto) 9.4 % (0.0-7.3) H 06/25/17 21:42 Eos % (Auto) 1.6 % (0.0-4.3) 06/25/17 21:42 Baso % (Auto) 0.5 % (0.0-1.8) 06/25/17 21:42 Lymph # 2.3 K/mm3 (1.2-5.4) 06/25/17 21:42 [place] # 0.9 K/mm3 (0.0-0.8) H 06/25/17 21:42 Eos # 0.2 K/mm3 (0.0-0.4) 06/25/17 21:42 Baso # 0.0 K/mm3 (0.0-0.1) 06/25/17 21:42 Seg Neutrophils % 65.0 % (40.0-70.0) 06/25/17 21:42 Seg Neutrophils # 6.4 K/mm3 (1.8-7.7) 06/25/17 21:42 Sodium 142 mmol/L (137-145) 06/25/17 21:42 Potassium 4.4 mmol/L (3.6-5.0) 06/25/17 21:42 Chloride 104.2 mmol/L (98-107) 06/25/17 21:42 Carbon Dioxide 21 mmol/L (22-30) L 06/25/17 21:42 Anion Gap 21 mmol/L 06/25/17 21:42 BUN 17 mg/dL (7-17) 06/25/17 21:42 Creatinine 1.0 mg/dL (0.7-1.2) 06/25/17 21:42 Estimated GFR > 60 ml/min 06/25/17 21:42 BUN/Creatinine Ratio 17.00 % 06/25/17 21:42 Glucose 107 mg/dL (65-100) H 06/25/17 21:42 Calcium 8.9 mg/dL (8.4-10.2) 06/25/17 21:42 Total Bilirubin 0.20 mg/dL (0.1-1.2) 06/25/17 21:42 AST 12 units/L (5-40) 06/25/17 21:42 ALT 7 units/L (7-56) 06/25/17 21:42 Alkaline Phosphatase 69 units/L (35-129) 06/25/17 21:42 Total Protein 7.9 g/dL (6.3-8.2) 06/25/17 21:42 Albumin 4.1 g/dL (3.9-5) 06/25/17 21:42 Albumin/Globulin Ratio 1.1 % 06/25/17 21:42 Lipase 23 units/L (13-60) 06/25/17 21:42 Urine Color Yellow (Yellow) 06/25/17 Unknown Urine Turbidity Clear (Clear) 06/25/17 Unknown Urine pH 6.0 (5.0-7.0) 06/25/17 Unknown Ur Specific [place] 1.030 (1.003-1.030) 06/25/17 Unknown Urine Protein 30 mg/dl mg/dL (Negative) 06/25/17 Unknown Urine Glucose (UA) Neg mg/dL (Negative) 06/25/17 Unknown Urine Ketones Tr mg/dL (Negative) 06/25/17 Unknown Urine Blood Neg (Negative) 06/25/17 Unknown Urine Nitrite Neg (Negative) 06/25/17 Unknown Urine Bilirubin Neg (Negative) 06/25/17 Unknown Urine Urobilinogen 2.0 mg/dL (<2.0) 06/25/17 Unknown Ur Leukocyte Esterase Lg (Negative) 06/25/17 Unknown Urine WBC (Auto) 9.0 /HPF (0.0-6.0) H 06/25/17 Unknown Urine RBC (Auto) 5.0 /HPF (0.0-6.0) 06/25/17 Unknown U Epithel Cells (Auto) 12.0 /HPF (0-13.0) 06/25/17 Unknown Urine Bacteria (Auto) 1+ /HPF (Negative) 06/25/17 Unknown Urine Mucus 1+ /HPF 06/25/17 Unknown - Imaging and Cardiology CT scan - abdomen: image reviewed (Severe [place] hydroureteronephrosis.) Assessment and Plan Assessment and plan: Abdominal pain/intractable nausea and vomiting Antiemetic Pain control with morphine IV fluid hydration. Supportive care Hydroureteronephrosis CT of the abdomen/pelvic revealed severe [place] hydroureteronephrosis. Nephrostomy tube was removed 06/26/[address] Jonas consulted for possible Percutaneous nephrostomy tube placement this afternoon. DVT prophylaxis Lovenox Advance Directives: Yes VTE prophylaxis?: Chemical Contraindication Mechanical VTE Prophylaxis: Treatment Not Indicated Plan of care discussed with patient/family: Yes
[2017-06-26] MEDS ORDERED: DULCOLAX PR PRN (10:00)
[2017-06-26] MEDS ORDERED: MORPHINE IV PRN (10:30)
[2017-06-26] MEDS ORDERED: NACL 0.9% 1000 ML 1,000 ML IV SCH (10:30)
[2017-06-26] MEDS ORDERED: ZOFRAN IV PRN (10:30)
[2017-06-26] MEDS ORDERED: NACL 0.9% 500 ML IR ONE (10:51)
[2017-06-26] MEDS ORDERED: XYLOCAINE 2% INFILTRATI ONE (10:51)
[2017-06-26] MEDS ORDERED: LEVAQUIN 500MG/100ML 500 MG/100 ML BAG IV ONE (10:51)
--- NOTE | 2017-06-26 10:51 | Consultation ---
History of Present Illness - Reason for Consult Consult date: 06/26/17 - History of Present Illness This is a 36 year old female known to me, due to prior nephrostomy placement. She had undergone a hysterectomy in April, and at that time a ureteral injury was suspected. A left nephrostomy was placed to diverge urine from the surgical bed. She was seen in our office as an outpatient yesterday. A nephrostomy and performed during her office visit was normal, and as such the nephrostomy tube was removed. Overnight, she developed abdominal pain and nausea. She returns to the emergency department at which time a CT scan showed recurrent hydronephrosis, along with a fluid collection of unknown etiology near the left ureterovesical junction. Medications and Allergies Allergies Allergy/AdvReac Type Severity Reaction Status Date / Time No Known Allergies Allergy Unverified 05/02/17 16:44 Home Medications Medication Instructions Recorded Confirmed Last Taken Type Ibuprofen [Motrin 600 MG tab] 600 mg PO Q8H PRN #30 tablet 05/09/17 06/26/17 Unknown Rx Multivitamin with Iron 1 each PO DAILY #30 tablet 05/09/17 06/26/17 Unknown Rx [Multivitamins with Iron] oxyCODONE /ACETAMINOPHEN [Percocet 1 tab PO Q6HR PRN #30 tablet 05/09/17 Unknown Rx 5/325] Active Meds: Active Medications Bisacodyl (Dulcolax) 10 mg DE QDAY PRN PRN Reason: constipation Enoxaparin Sodium (Lovenox) 40 mg SUB-Q QDAY KWASI Sodium Chloride (Nacl 0.9% 1000 Ml) 1,000 mls @ 75 mls/hr IV DIRECT KWASI Morphine Sulfate (Morphine) 2 mg IV Q4H PRN PRN Reason: Pain, Moderate (4-6) Ondansetron HCl (Zofran) 4 mg IV Q4H PRN PRN Reason: Nausea And Vomiting Exam - Constitutional Vitals: Temp Pulse Resp BP Pulse Ox 97.7 F 58 L 18 114/68 100 06/26/17 02:07 06/26/17 02:07 06/26/17 02:07 06/26/17 09:21 06/26/17 09:21 Results - Labs CBC & Chem 7: 06/25/17 21:42 09/12/17 21:42 Assessment and Plan I will place a left nephrostomy today. I will ensure urology is following the patient as well, as the distal ureteral fluid collection may require surgical intervention eventually.
[2017-06-26] MEDS: VERSED ONE ×2 (10:58→11:07)
[2017-06-26] MEDS: SUBLIMAZE ONE ×2 (10:58→11:02)
[2017-06-26] MEDS ORDERED: LOVENOX SUB-Q SCH (11:00)
--- NOTE | 2017-06-26 12:46 | Operative Report ---
Operative Report Operative Report: Procedure: 1. Left antegrade nephrostogram. 2. Percutaneous left-sided nephrostomy placement. Date of Procedure: 06/26/2017 History/Indication: 36-year-old female with a left distal ureteral injury likely related to recent hysterectomy. She had her previously placed left nephrostomy catheter removed yesterday, as outpatient imaging demonstrated normal appearance of the ureter. However, she developed abdominal pain and nausea yesterday evening. CT performed in the ER at that time demonstrated recurrent hydronephrosis with a new fluid collection near the UVJ. Physician: Vani Sanderson MD Technique/Procedural Details: The patient was placed in the prone position and prepped and draped in the usual sterile fashion. A timeout was performed. A Glidewire was used to cannulate the old left nephrostomy catheter exit site. This was maneuvered under fluoroscopic guidance into the left renal pelvis. A 4 [place]ian vertebral catheter was placed over the Glidewire. The Glidewire was removed, and contrast was injected into the vertebral catheter, to confirm placement within the left renal pelvis. A combination of a glide advantage wire and 4 [place]amanian vertebral catheter was used to traverse into the distal ureter. Injection of contrast was again performed. The 4 [place]ian vertebral catheter was then exchanged for an 8 [place]ian nephrostomy tube. The locking loop was formed, and contrast was injected to confirm good placement. 2-0 Ethilon sutures were used to secure the catheter to the skin. A postdrainage image was acquired. Sterile dressings were placed, and the patient was transported out of the room in good condition. Discussion: There is successful placement of a left-sided nephrostomy catheter via the previous nephrostomy catheter tract. Again seen is severe left hydronephrosis and hydroureter with tortuosity and dilatation. Injection of contrast into the distal ureter demonstrates no opacification of the urinary bladder. Additionally, there is no apparent connection between the ureter and a fluid collection seen on prior CT. The newly placed drain fills and decompresses the left renal collecting system well. I discussed this case with Dr. Gamble of urology, and we agreed the patient can follow up with him in his office to discuss further treatment options. Specimen: Urine specimen EBL: <5 cc
[2017-06-26 12:57] VITALS: BP 106/71
--- NOTE | 2017-06-26 15:42 | Discharge Summary ---
<OSCAR HART - Last Filed: 06/26/17 16:04> Providers - Providers Date of Admission: 06/26/17 09:26 Date of discharge: 06/26/17 Attending physician: NICOLE HERNANDEZ Primary care physician: ELLEN DE LOS SANTOS Hospitalization Condition: Fair Hospital course: Patient is 36 years old female with past medical history fibroids and ovarian cyst who presents to the emergency department with a chief complaint of nausea vomiting and abdominal pain. She localizes the pain to her right lower quadrant area and states that it radiates to her right upper rib. She notes that it became markedly worse after removal of nephrostomy tube. The patient had a nephrostomy placed in April 2017 secondary to left-sided hydroureter discovered during a laparoscopic hysterectomy. The Percutaneous nephrostomy tube was placed by Dr. Jonas. CT of the abdomen/pelvic revealed severe [place] hydroureteronephrosis. Patient was diagnosed with Abdominal pain/ intractable nausea and vomiting Hydroureteronephrosisn. Patient has done today Percutaneous nephrostomyplacement today. Patient tolerated the procedure well and post-operatively stable. Patient denies pain at present time.Patient clinically improved. She being discharged on oral pain medication. Patient was advised to follow up with office and Dr. Quiles. Discharge Diagnosed Abdominal pain/intractable nausea and vomiting Hydroureteronephrosis Disposition: - TO HOME OR SELFCARE Time spent for discharge: 33 minutes Core Measure Documentation - Palliative Care Palliative Care/ Comfort Measures: Not Applicable - Core Measures Any of the following diagnoses?: none Exam - Constitutional Vitals: Temp Pulse Resp BP Pulse Ox 97.7 F 79 19 106/71 98 06/26/17 02:07 06/26/17 12:53 06/26/17 12:53 06/26/17 12:53 06/26/17 12:53 General appearance: Present: no acute distress - EENT Eyes: Present: PERRL ENT: hearing intact - Neck Neck: Present: supple - Respiratory Respiratory effort: normal Respiratory: bilateral: CTA - Cardiovascular Rhythm: regular Heart Sounds: Present: S1 & S2 - Extremities Extremities: no ischemia Peripheral Pulses: within normal limits - Abdominal General gastrointestinal: Present: soft, non-tender Female genitourinary: Present: deferred - Rectal Rectal Exam: deferred - Integumentary Integumentary: Present: clear, warm, dry - Musculoskeletal Musculoskeletal: strength equal bilaterally - Psychiatric Psychiatric: appropriate mood/affect - Neurologic Neurologic: CNII-XII intact - Allied Health Allied health notes reviewed: nursing Plan Activity: no restrictions Weight Bearing Status: Weight Bear as Tolerated Diet: low protein Follow up with: ELLEN DE LOS SANTOS MD [Primary Care Provider] - 3-5 Days HANK QUILES MD [Staff Physician] - 7 Days DIOMEDES SEBASTIAN MD [Staff Physician] - 7 Days Forms: Work/School Release Form(ED) Prescriptions: Oxycodone HCl/Acetaminophen [Percocet 2.5/325 mg] 1 each PO Q6HR PRN #8 tablet PRN Reason: Pain <NICOLE HERNANDEZ - Last Filed: 06/26/17 18:03> Providers - Providers Date of Admission: 06/26/17 09:26 Attending physician: NICOLE HERNANDEZ Primary care physician: ELLEN DE LOS SANTOS Exam - Constitutional Vitals: Temp Pulse Resp BP Pulse Ox 97.7 F 79 19 106/71 98 06/26/17 02:07 06/26/17 12:53 06/26/17 12:53 06/26/17 12:53 06/26/17 12:53
== END 2017-06-26 17:11 | disposition home or self-care (01) | DRG 661 ==
LOC: ED 21:18 → 3A 06-26 09:26
PROVIDERS: ADMIT Internal Medicine; ATTEND Internal Medicine
PROC: 0T9130Z Drainage of Left Kidney with Drainage Device, Percutaneous Approach (ICD-10-PCS; principal; 2017-06-26)
PROC: BT141ZZ Fluoroscopy of Kidneys, Ureters and Bladder using Low Osmolar Contrast (ICD-10-PCS; 2017-06-26)
DX: N13.30 Unspecified hydronephrosis (principal); R11.2 Nausea with vomiting, unspecified; Z79.899 Other long term (current) drug therapy; Z90.710 Acquired absence of both cervix and uterus; Z82.49 Family history of ischemic heart disease and other diseases of the circulatory system
CPT/HCPCS: 36415; 50432; 74176; 80053; 81001; 83690; 85025; 87086; 96374; 96375; C1729; C1751; C1769; J1650; J1885; J1956; J2250; J2405; J2765; J3010; J7030; Q9967

== ENCOUNTER 2017-07-01 09:26 | Outpatient (CLI) | payer OTHER ==
--- NOTE | 2017-07-01 11:02 | Ultrasound Report ---
ULTRASOUND RENAL BILATERAL INDICATION: Hydronephrosis. COMPARISON: 06/26/2017. FINDINGS: Renal sonography suggests normal cortical echogenicity. Grossly preserved renal contours. RIGHT KIDNEY is 11.7 x 4 x 5 cm with cortical thickness of 1 cm. LEFT KIDNEY is 13.3 x 5.3 x 4.6 cm with cortical thickness of 1.5 cm and overall less hydronephrotic with dilated lower pole collecting system and a new stent now noted. Urinary bladder suboptimally distended and assessed as patient recently voided. CONCLUSION: 1. Interval left renal stent placement and overall improved hydronephrosis with lower pole collecting system dilatation now identified, as described. 2. Few other findings, as above. Thank you for the opportunity to participate in this patient's care.
== END 2017-07-01 09:27 | disposition home or self-care (01) ==
LOC: US 09:26
PROVIDERS: ATTEND Radiology Diagnostic Radiology
DX: N13.39 Other hydronephrosis (principal)
CPT/HCPCS: 76770